=== PATIENT | male | born 1985 | race Caucasian/White ===

== ENCOUNTER 2017-11-27 16:23 | Emergency (ER) | payer SELFPAY ==
[~2017-11-27] VITALS: Ht 162.6 cm; Wt 94.3 kg
--- NOTE | 2017-11-27 16:35 | NUR ---
NO ASNWER WHEN CALLED FOR TRIAGE
[2017-11-27 16:59] VITALS: BP 134/93
--- NOTE | 2017-11-27 17:02 | NUR ---
PT SENT TO LOBBY AFTER TRIAGE. CONDITION STABLE
--- NOTE | 2017-11-27 18:47 | NUR ---
PT AMBULATES TO BED 3
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
[2017-11-27] MEDS ORDERED: NEOMYCIN/POLYMYXIN/BACITRACIN 0.9 GM/1 PKT TP ONE (19:35)
[2017-11-27] MEDS ORDERED: LIDOCAINE 1% ***ER ONLY *** 10 MG/ML VIAL INJ ONE (19:35)
[2017-11-27] MEDS ORDERED: LIDOCAINE MPF 1% - **ER/OR** 10 ML ONE (19:56)
[2017-11-27] MEDS ORDERED: BACITRACIN OINT 500 UNITS/GM PKT TP ONE (20:11)
[2017-11-27 20:27] VITALS: BP 122/62
== END 2017-11-27 20:29 | disposition home or self-care (01) ==
LOC: MED 16:23
DX: S61.411A Laceration without foreign body of right hand, initial encounter (principal); F17.210 Nicotine dependence, cigarettes, uncomplicated; Z88.0 Allergy status to penicillin; W27.8XXA Contact with other nonpowered hand tool, initial encounter; Y93.89 Activity, other specified; Y92.89 Other specified places as the place of occurrence of the external cause; Y99.8 Other external cause status
CPT/HCPCS: 12001; 90471; 90715; 99283; J2001

== ENCOUNTER 2019-12-22 09:29 | Emergency (ER) | payer MEDICAID ==
[~2019-12-22] VITALS: Ht 162.6 cm; Wt 94.3 kg
[2019-12-22 09:30] VITALS: BP 161/103
[2019-12-22] MEDS ORDERED: ONDANSETRON 4 MG/2 ML VIAL IVP ONE (09:50)
[2019-12-22] MEDS ORDERED: MORPHINE SULFATE 4 MG/ML SYR IVP ONE (09:50)
[2019-12-22 10:15] LABS: BASOPHILS # (AUTO) 0.1 K/uL (0.00-0.22); BASOPHILS % (AUTO) 0.9 % (0.0-2.0); EOSINOPHILS # (AUTO) 0.1 K/uL (0-0.4); EOSINOPHILS % (AUTO) 1.5 % (0.0-4.0); HEMATOCRIT 45.2 % (36-52); HEMOGLOBIN 15.7 g/dL (12.0-18.0); LYMPHOCYTES # (AUTO) 2.3 K/uL (2.0-11.5); LYMPHOCYTES % (AUTO) 31.2 % (20.5-51.1); MEAN CORPUSCULAR HEMOGLOBIN 32 pg (27-31); MEAN CORPUSCULAR HGB CONC 35 g/dL (33-37); MEAN CORPUSCULAR VOLUME 91.5 fL (80-94); MONOCYTES # (AUTO) 0.6 K/uL (0.8-1.0); MONOCYTES % (AUTO) 8.7 % (1.7-9.3); NEUTROPHILS # (AUTO) 4.3 K/uL (1.8-7.7); NEUTROPHILS % (AUTO) 57.7 % (42.2-75.2); PLATELET COUNT (AUTO) 271 K/uL (140-450); RED BLOOD CELL COUNT(AUTO) 4.94 MIL/uL (4.20-6.10); RED CELL DISTRIBUTION WIDTH 12.9 % (11.6-13.7); WHITE BLOOD COUNT (AUTO) 7.5 K/uL (4.8-10.8)
[2019-12-22 10:30] LABS: ALBUMIN 3.5 g/dL (3.4-5.0); ANION GAP 14.6 (8-16); CARBON DIOXIDE 27.3 mmol/L (21-32); CREATININE 1.3 mg/dL (0.6-1.3); POTASSIUM 3.9 mmol/L (3.5-5.1); TOTAL BILIRUBIN 0.4 mg/dL (0.0-1.0)
[2019-12-22 11:32] LABS: APPEARANCE,URINE HAZY (CLEAR); BILIRUBIN,URINE NEGATIVE (NEGATIVE); BLOOD, URINE NEGATIVE (NEGATIVE); COLOR,URINE YELLOW (YELLOW); LEUKOCYTE ESTERASE ,URINE NEGATIVE (NEGATIVE); NITRITE, URINE NEGATIVE (NEGATIVE); UGLUCOSE NEGATIVE (NEGATIVE)
[2019-12-22 16:09] VITALS: BP 133/85
== END 2019-12-22 16:11 | disposition home or self-care (01) ==
LOC: MED 09:29
DX: K40.90 Unilateral inguinal hernia, without obstruction or gangrene, not specified as recurrent (principal); Z88.0 Allergy status to penicillin
CPT/HCPCS: 36415; 74177; 76870; 80053; 81003; 83605; 85025; 96374; 96375; 99285; J2270; J2405; Q0092; Q9967

== ENCOUNTER 2020-12-28 02:50 | Emergency (ER) | payer MEDICAID, OTHER ==
[~2020-12-28] VITALS: Ht 165.1 cm; Wt 104.3 kg
[2020-12-28 02:52] VITALS: BP 128/68
--- NOTE | 2020-12-28 02:55 | NUR ---
TO LOBBY A/W BED VIA WHEELCHAIR
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
--- NOTE | 2020-12-28 05:41 | NUR ---
Patient appears to be resting comfortably in bed-- Low fowlers. Respirations even and unlabored. Safety measures are in place, will continue monitoring patient
--- NOTE | 2020-12-28 07:13 | NUR ---
Pt report given to Lisa JOVEL. Transfer of care at this time.
--- NOTE | 2020-12-28 07:14 | NUR ---
Report received from Carrie, RN and care was assumed.
[2020-12-28] MEDS ORDERED: IBUP-2213 PO (07:33)
--- NOTE | 2020-12-28 07:41 | NUR ---
PT GIVEN CRUTCHES THAT WERE ADJUSTED TO PTS SIZE AND HEIGHT, PT SHOWED PROPER DEMONSTRATION OF CRUTCHES AND HAD NO FURTHER QUESTIONS, RN NOTIFIED.
[2020-12-28 07:42] VITALS: BP 129/84
--- NOTE | 2020-12-28 07:42 | NUR ---
Patient discharged with v/s stable. Written and verbal after care instructions given and explained. Patient alert, oriented and verbalized understanding of instructions. Ambulatory w/ crutches with steady gait. All questions addressed prior to discharge. ID band removed. Patient advised to follow up with PMD. Rx of Ibuprofen given. Patient educated on indication of medication including possible reaction and side effects. Opportunity to ask questions provided and answered.
== END 2020-12-28 07:42 | disposition home or self-care (01) ==
LOC: MED 02:50
DX: M79.672 Pain in left foot (principal); Z88.0 Allergy status to penicillin
CPT/HCPCS: 73630; 73700; 99284